=== PATIENT | male | born 1985 | race Caucasian/White ===

== ENCOUNTER 2019-06-19 14:43 | Emergency (ER) | payer BC ==
[~2019-06-19] VITALS: Ht 182.9 cm; Wt 71.8 kg
[~2019-06-19 14:43] MED LIST: NORCO 325 MG-51 TAB PO
[2019-06-19 14:51] VITALS: BP 127/80; PULSE 63; TEMP 97.7
[2019-06-19] MEDS ORDERED: NAPROSYN500 MG PO (16:18)
== END 2019-06-19 16:28 | disposition home or self-care (01) ==
LOC: COL.ER 14:43
DX: S83.8X2A Sprain of other specified parts of left knee, initial encounter (principal); Z87.828 Personal history of other (healed) physical injury and trauma; X50.1XXA Overexertion from prolonged static or awkward postures, initial encounter; Y99.0 Civilian activity done for income or pay
CPT/HCPCS: J1885; L1846

== ENCOUNTER 2019-08-09 10:00 | Outpatient (RCR) | payer OTHER ==
[~2019-08-09 10:00] MED LIST changes: +NAPROSYN500 MG PO
== END 2019-09-06 13:38 | disposition home or self-care (01) ==
LOC: WSPT 10:00
DX: Z96.652 Presence of left artificial knee joint (principal)
CPT/HCPCS: G0283-GP